=== PATIENT | male | born 1980 | race Two or more races ===

== ENCOUNTER 2019-08-16 17:41 | Emergency (ER) | payer MEDICARE, OTHER ==
[~2019-08-16] VITALS: Ht 182.9 cm; Wt 95.2 kg
--- NOTE | 2019-08-16 19:03 | NUR ---
PT SUPINE ON GURNEY, HARD C-COLLAR IN PLACE. REPORTS HARD [place] [place] ON [address] ON FRIDAY. C/O C- SPINE, MID-THORACIC, LUMBAR-SACRAL. C/O NUMBESS TO LT MIDDLE FINGER, INTERMITTENTLY INDEX FINGER. C/O INTERMITTENT NUMBNESS TO RT MIDDLE FINGER, PALMS.
--- NOTE | 2019-08-16 19:10 | NUR ---
TO CT PER TOLU
[2019-08-16] MEDS ORDERED: HYDROXYZINE (19:14)
[2019-08-16] MEDS ORDERED: RISPERIDONE (19:14)
[2019-08-16] MEDS ORDERED: TRAZADONE (19:16)
[2019-08-16] MEDS ORDERED: VITAMIN D (19:16)
[2019-08-16] MEDS ORDERED: KETOROLAC 30 MG/1 ML IM ONE (19:34)
--- NOTE | 2019-08-16 19:54 | NUR ---
PT REPORT TO BREAK RN. PT CARE TRANSFERRED.
[2019-08-16] MEDS ORDERED: KETOROLAC 30 MG/1 ML ONE (20:00)
[2019-08-16 22:45] VITALS: BP 133/72
== END 2019-08-16 22:48 ==
LOC: ED 22:42
DX: S22.051A Stable burst fracture of T5-T6 vertebra, initial encounter for closed fracture (principal); S22.061A Stable burst fracture of T7-T8 vertebra, initial encounter for closed fracture; S22.071A Stable burst fracture of T9-T10 vertebra, initial encounter for closed fracture; M54.14 Radiculopathy, thoracic region; X58.XXXA Exposure to other specified factors, initial encounter; Y93.89 Activity, other specified; Y92.89 Other specified places as the place of occurrence of the external cause; Y99.8 Other external cause status
CPT/HCPCS: 72072; 72110; 72125; 72128; 73502; 96372; 99285; J1885

== ENCOUNTER 2019-08-29 06:31 | Emergency (ER) | payer MEDICARE, OTHER ==
[~2019-08-29] VITALS: Ht 185.4 cm; Wt 98.0 kg
[~2019-08-29 06:31] MED LIST: HYDROXYZINE; RISPERIDONE; TRAZADONE; VITAMIN D
[2019-08-29 06:33] VITALS: BP 154/82
--- NOTE | 2019-08-29 06:55 | NUR ---
PERSISTENT PROBLEMS FROM COMPRESSION FRACTURES T 6-T9. THIS INJURY HAPPENED AUGUST 11 AND HE HAD UNDERLYING BACK PROBLEMS. PATIENT STATES HE CONTINUES TO HAVE PAIN AND NUMBNNESS AND TINGLING INDEX FINGER
[2019-08-29] MEDS ORDERED: KETOROLAC 30 MG/1 ML IVPush ONE (07:30)
--- NOTE | 2019-08-29 07:59 | NUR ---
patient in mri. no toradol given as patient has anaphalactic rxn to ibuprofen. aware. discussed with pharmacy
[2019-08-29] MEDS ORDERED: GADOTERATE 10 MMOL/20 ML SYR ONE (09:02)
--- NOTE | 2019-08-29 09:03 | NUR ---
REPORT FROM SUSAN THOMPSON. PT CARE RESPONSIBLITIES ASSUMED.
--- NOTE | 2019-08-29 10:35 | NUR ---
ASSUMED CARE FOR DISCHARGE ONLY Patient/Caregiver given discharge instructions and they have confirmed that they understand the instructions. Patient ambulatory with steady gait.
== END 2019-08-29 10:37 | disposition home or self-care (01) ==
LOC: ED 06:50
DX: M54.6 Pain in thoracic spine (principal); R20.2 Paresthesia of skin; Z88.6 Allergy status to analgesic agent
CPT/HCPCS: 72157; 99285; A9575; 99284

== ENCOUNTER 2020-12-15 15:25 | Observation (INO) | payer MEDICARE ==
[~2020-12-15] VITALS: Ht 182.9 cm; Wt 102.3 kg
--- NOTE | 2020-12-15 15:43 | NUR ---
UNABLE TO COMPLETE SUICIDE ASSESSMENT SCREEEN PT OFFERS NO FLUID CONVERSATION WITH FLIGHT OF IDEAS. WHEN ASKED IF HE IS SUICIDAL PT STATES "I JUST NEED TO GET MY HAIR CUT, SHAVE MY BODY HAIR AND NOSE"
--- NOTE | 2020-12-15 16:00 | NUR ---
report taken from SUSAN Lee. care assumed at this time.
--- NOTE | 2020-12-15 16:10 | NUR ---
psych museum librariansasha mariano at bedside for psych eval
[2020-12-15 16:17] LABS: ALBUMIN 3.6 g/dL (3.4-5.0); ANION GAP 3 mmol/L (5-15); CALCIUM 8.4 mg/dL (8.5-10.1); CHLORIDE 113 mmol/L (98-107)
[2020-12-15 16:20] LABS: ALANINE AMINOTRANSFERASE 49 U/L (12-78); ALKALINE PHOSPHATASE 88 U/L (45-117); BILIRUBIN,TOTAL 0.4 mg/dL (0.2-1.0); CREATININE 1.04 mg/dL (0.7-1.3); TOTAL PROTEIN 7.4 g/dL (6.4-8.2)
[2020-12-15 16:34] LABS: BASOPHILS % (AUTO) 1 % (0-1); EOSINOPHILS % (AUTO) 3 % (1-7); LYMPHOCYTES % (AUTO) 21 % (22-44); MEAN CORPUSCULAR HEMOGLOBIN 30.8 pg (27.5-34.5); MEAN CORPUSCULAR HGB CONC 34.6 g/dL (33.2-36.2); MONOCYTES % (AUTO) 5 % (2-9); NEUTROPHILS % (AUTO) 71 % (42-75); PLATELET COUNT 226 x10^3/uL (130-400); RED BLOOD COUNT 5.37 x10^6/uL (4.38-5.82); RED CELL DISTRIBUTION WIDTH 13.3 % (9.4-14.8)
[2020-12-15] MEDS ORDERED: HALOPERIDOL 5 MG TABLET PO PRN (17:00)
[2020-12-15] MEDS ORDERED: LORazepam 2 MG/ML, 1ML IM PRN (17:00)
[2020-12-15] MEDS ORDERED: DIPHENHYDRAMINE 50 MG/ML, 1ML IM PRN (17:00)
[2020-12-15] MEDS ORDERED: HALOPERIDOL 5 MG/ML IM PRN (17:00)
[2020-12-15] MEDS ORDERED: DIPHENHYDRAMINE 50 MG CAPSULE PO PRN (17:00)
[2020-12-15] MEDS ORDERED: LORazepam 1MG TABLET PO PRN (17:00)
--- NOTE | 2020-12-15 17:30 | NUR ---
this RN went to prompt pt to provide urine, curtain closed. when RN notified pt that curtain must be open for pt safety, pt began to scream at RN, making paranoid statements. pt refuses to cooperate with any assessment, refusing to cooperate with staff. pt calm when left alone. room secure. sitter monitoring from hallway for safety. curtain open. pt in gown.
--- NOTE | 2020-12-15 18:30 | NUR ---
pt sitting on guadelfo, a&o, resps even and unlabored. no further outbursts.
--- NOTE | 2020-12-15 19:13 | NUR ---
report to SUSAN Noonan at bedside. pt instructed to provide urine sample, pt compliant. dinner has not arrived yet from kitchen. pt a&o, resps even and unlabored. cooperative. pt dressed in gown in secure room. sitter monitoring from doorway for safety.
[2020-12-15 19:34] LABS: AMPHETAMINE SCREEN, URINE Negative (Negative); BARBITURATE SCREEN, URINE Negative (Negative); BENZODIAZEPINE SCREEN, URINE Negative (Negative); CANNABINOID SCREEN, URINE Negative (Negative); COCAINE SCREEN, URINE Negative (Negative); METHADONE SCREEN, URINE Negative (Negative); OPIATE SCREEN, URINE Negative (Negative)
--- NOTE | 2020-12-15 19:38 | NUR ---
Pt provided with dinner. Educated about L2K, pt verbally aggressive, "I'm going to stab the governor in his asshole."
--- NOTE | 2020-12-15 22:30 | NUR ---
PACKET FAXED TO [facility], [facility] AND [facility]
--- NOTE | 2020-12-15 22:44 | NUR ---
[facility] REVIEWING PACKET, [facility] NO BEDS AVAILABLE UNTIL THEY HAVE A DISCHARGE
[2020-12-16 00:24] VITALS: BP 134/89
== END 2020-12-16 05:33 | disposition home or self-care (01) ==
LOC: ED 15:54 → EDIP 16:05
PROVIDERS: ADMIT Emergency Medicine; ATTEND Emergency Medicine
DX: F29 Unspecified psychosis not due to a substance or known physiological condition (principal); F32.9 Major depressive disorder, single episode, unspecified; R45.851 Suicidal ideations; Z91.14 Patient's other noncompliance with medication regimen; Z79.899 Other long term (current) drug therapy
CPT/HCPCS: 36415; 80053; 80299; 80307; 80320; 80329; 85025; 99284; G0378; G0480